=== PATIENT | female | born 1970 | race Caucasian/White ===

== ENCOUNTER 2018-12-04 15:44 | Emergency (ER) | payer SELFPAY ==
[~2018-12-04] VITALS: Ht 160 cm; Wt 80.9 kg
[~2018-12-04 15:44] MED LIST: IBUP800T48; MULT1CAP57
[2018-12-04 15:45] VITALS: BP 123/81; PULSE 63; RESP 20; Ht 160 cm; Wt 80.9 kg
== END 2018-12-04 20:24 | disposition left against medical advice (07) ==
LOC: E/R 15:44
DX: Z53.21 Procedure and treatment not carried out due to patient leaving prior to being seen by health care provider (principal)
CPT/HCPCS: 93005